=== PATIENT | female | born 1995 | race American Indian/Alaskan Native ===

== ENCOUNTER 2017-08-04 02:18 | Emergency (ER) | payer SELFPAY ==
[2017-08-04 03:33] VITALS: BP 127/85
== END 2017-08-04 03:30 | disposition left against medical advice (07) ==
LOC: ED 02:18
DX: R51 Headache (principal); R42 Dizziness and giddiness; Z53.21 Procedure and treatment not carried out due to patient leaving prior to being seen by health care provider